=== PATIENT | female | born 1965 | race Caucasian/White ===

== ENCOUNTER 2018-04-15 11:01 | Emergency (ER) | payer SELFPAY ==
[2018-04-15 11:07] VITALS: BP 130/75; PULSE 80; TEMP 97.5; BMI 25.8
--- NOTE | 2018-04-15 11:42 | PDOC ---
History of Present Illness - General Chief Complaint: Pain Stated Complaint: RIGHT SIDE NUMBNESS Time Seen by Provider: 04/15/18 11:11 History Source: Patient - History of Present Illness Timing/Duration: other Associated Symptoms: denies: headaches Past History - Past Medical History Allergies/Adverse Reactions: Allergies Allergy/AdvReac Type Severity Reaction Status Date / Time No Known Allergies Allergy Verified 04/15/18 11:03 Home Medications: Ambulatory Orders NK [No Known Home Medication] 04/15/18 COPD: No - Immunization History Immunization Up to Date: Yes - Suicide/Smoking/Psychosocial Hx Smoking History: Never smoked Have you smoked in the past 12 months: No Information on smoking cessation initiated: No Hx Alcohol Use: No Drug/Substance Use Hx: No Review of Systems - Review of Systems Neurological: Yes: Numbness. No: Headache, Paresthesia, Weakness, Unsteady Gait , Ataxia, Dizziness *Physical Exam - Vital Signs Last Vital Signs Temp Pulse Resp BP Pulse Ox 97.5 F L 80 18 130/75 99 04/15/18 11:03 04/15/18 11:03 04/15/18 11:03 04/15/18 11:03 04/15/18 11:03 - Physical Exam General Appearance: Yes: Appropriately Dressed. No: Apparent Distress HEENT: positive: Normal Voice Neck: negative: Supple Respiratory/Chest: negative: Respiratory Distress Musculoskeletal: positive: Normal Inspection. negative: Vertebral Tenderness Extremity: positive: Normal Inspection Integumentary: positive: Dry, Warm Neurologic: positive: Fully Oriented, Alert, Normal Mood/Affect, Motor Strength 5/5, Sensory Deficit (to entire RLE compared to L side), Finger to Nose. negative: Facial Droop ED Treatment Course - LABORATORY CBC & Chemistry Diagram: 04/15/18 12:11 04/15/18 12:11 Medical Decision Making - Medical Decision Making 04/15/18 12:08 52-year-old female denies any past medical history and not on any medication here with numbness to the entire right lower extremity starting 2 days ago, constant, with no alleviating or exacerbating factors. States she now feels numbness extending up to her hip and possible waist area. Denies any back or leg pain and no saddle anesthesia or bowel or bladder incontinence. Patient denies headache, dizziness, vertigo, blurry vision, speech changes, focal weakness or ataxia. Patient denies any previous episodes. No obvious inciting factors. No recent illnesses See exam Isolated peripheral neuropathy Source unclear at this time, no pmhx, no trauma, no ETOH use -CT -labs -neuro c/s 04/15/18 13:39 CT and labs negative. Case d/w Dr Burnett of neurology and states pt can call office for follow up visit next week. Pt and satisfied w/ plan and feels safe going home *DC/Admit/Observation/Transfer Diagnosis at time of Disposition: Numbness - Discharge Dispostion Disposition: HOME Condition at time of disposition: Good - Referrals Referrals: Kevyn Burnett MD [Staff Physician] - - Patient Instructions Printed Discharge Instructions: Peripheral Neuropathy Additional Instructions: The cause of your numbness is unclear at this time and she will need further evaluation by a neurologist. Please call Dr. Burnett on Wednesday to make an appointment. If you do not get a soon appointment, requests that you be placed on the waiting list as patient's often change their minds and cancel appointments Alternatively, you can contact the number on the back of your insurance card and requests that the email your list of neurologist in your area, who accepts her insurance - Post Discharge Activity Forms/Work/School Notes: Back to Work
[2018-04-15 12:55] LABS: BASO % 0.8 % (0-2.0); EOS % 0.9 % (0-4.5); HEMATOCRIT 37.6 % (32.4-45.2); HEMOGLOBIN 12.6 GM/dL (10.7-15.3); LYMPH % 33.1 % (8-40); MCH 27.7 pg (25.7-33.7); MCHC 33.6 g/dl (32.0-36.0); MEAN CELL VOLUME 82.4 fl (80-96); MEAN PLT VOLUME 8.7 fl (7.5-11.1); MONO % 6.3 % (3.8-10.2); NEUT % 58.9 % (42.8-82.8); PLATELET COUNT 201 K/MM3 (134-434); RBC 4.56 M/mm3 (3.60-5.2); RDW 13.9 % (11.6-15.6); WHITE BLOOD COUNT 5.5 K/mm3 (4.0-10.0)
[2018-04-15 13:20] LABS: ALBUMIN 3.6 g/dl (3.4-5.0); ANION GAP 7 (8-16); BLOOD UREA NITROGEN 15 mg/dL (7-18); CALCIUM 8.7 mg/dL (8.5-10.1); CHLORIDE 108 mmol/L (98-107); CO2 25 mmol/L (21-32); CREATININE 0.5 mg/dL (0.55-1.02); GLUCOSE,RANDOM 116 mg/dL (74-106); POTASSIUM 3.6 mmol/L (3.5-5.1); SGOT/AST 21 U/L (15-37); SGPT/ALT 26 U/L (12-78); SODIUM 140 mmol/L (136-145)
[2018-04-15 13:21] LABS: ALK PHOS 90 U/L (45-117); BILIRUBIN,TOTAL 0.4 mg/dL (0.2-1.0); TOT PROT 7.5 g/dl (6.4-8.2)
== END 2018-04-15 13:48 | disposition home or self-care (01) ==
LOC: JERFT 11:01
DX: G62.9 Polyneuropathy, unspecified (principal)
CPT/HCPCS: 36415; 70450-TC; 80053; 84443; 85025; 99281-25